=== PATIENT | female | born 1945 | race Two or more races ===

== ENCOUNTER 2024-09-23 11:43 | Inpatient (IN) | payer MEDICARE, OTHER ==
[~2024-09-23] VITALS: Ht 152.4 cm; Wt 68.0 kg
[2024-09-23 12:02] LABS: PLATELET COUNT (AUTO) 123 K/uL (150-450); RED BLOOD CELL COUNT(AUTO) 3.47 MIL/uL (4.0-5.2); RED CELL DISTRIBUTION WIDTH 24.4 % (11.5-15.0); WHITE BLOOD COUNT (AUTO) 4.2 K/uL (4.3-11.0)
[2024-09-23 12:36] LABS: ABG BASE EXCESS -0.8 mmol/L (-2.0-3.0); ABG OXYGEN SATURATION 98.0 % (94.0-98.0); ABG PCO2 32.4 mmHg (32.0-45.0); ABG PH 7.458 (7.350-7.450); ABG PO2 108.8 mmHg (83.0-108.0); ABG TOTAL HEMOGLOBIN 11.2 G/dL (12.0-16.0); FLOW, BLOOD GAS 4.00 L/min (0.00-30.00); FRACTIONATED INSPIRED OXYGEN 36.0 %; SITE, ABG RIGHT RADIAL
[2024-09-23 12:42] LABS: CALCIUM, SERUM 8.4 mg/dL (8.5-10.1); CREATININE 2.2 mg/dL (0.6-1.3); SODIUM SERUM 136 mmol/L (136-145); UREA NITROGEN, BLOOD 24 mg/dL (7-18)
[2024-09-23 12:54] LABS: NT-PRO BNP > 25000 pg/mL (0-125)
[2024-09-23 13:35] LABS: EOSINOPHILS % (MANUAL) 3 % (0-4); LYMPHOCYTES % (MANUAL) 14 % (16-48); MONOCYTES % (MANUAL) 11 % (0-11.0); NEUTROPHILS % (MANUAL) 72 (42-76); PLATELET ESTIMATE DECREASED
[2024-09-23] MEDS ORDERED: MAGNESIUM HYDROXIDE 30 ML UDC PO PRN (14:00)
[2024-09-23] MEDS ORDERED: MAG HYDROX/AL HYDROX/SIMETH 30 ML UDC PO PRN (14:00)
[2024-09-23] MEDS ORDERED: ONDANSETRON HCL/PF 4 MG/2 ML VIAL IVP PRN (14:00)
[2024-09-23 14:30] VITALS: BP 106/62; TEMP 97.7; O2SAT 94
[2024-09-23] MEDS ORDERED: MIRT-90 PO (14:53)
[2024-09-23] MEDS ORDERED: CYCL5TAB PO (14:53)
[2024-09-23] MEDS ORDERED: APIX5TAB PO (14:53)
[2024-09-23] MEDS ORDERED: FURO40TA5 PO (14:53)
[2024-09-23] MEDS ORDERED: ROSU10TA2 PO (14:53)
[2024-09-23] MEDS ORDERED: METO25TA6 PO (14:53)
[2024-09-23] MEDS ORDERED: PANT40TA49 PO ×2 (14:53)
[2024-09-23] MEDS ORDERED: MIDO5TAB4 PO (14:53)
[2024-09-23] MEDS ORDERED: GUAI1TBM19 PO (14:53)
[2024-09-23] MEDS ORDERED: CALC667T2 PO (14:53)
[2024-09-23] MEDS ORDERED: ACET-73 PO (14:53)
[2024-09-23 16:00] VITALS: BP 148/68; TEMP 98.4; O2SAT 95
[2024-09-23] MEDS: CALCIUM ACETATE 667 MG CAP/TAB PO SCH (18:08)
[2024-09-23] MEDS: APIXABAN 5 MG TABLET PO SCH (18:09)
[2024-09-23 20:00] VITALS: BP 117/74; TEMP 97.5
[2024-09-23] MEDS: CYCLOBENZAPRINE 10 MG TABLET PO SCH (21:52)
[2024-09-23] MEDS: MIRTAZAPINE 15 MG TABLET PO SCH (21:52)
[2024-09-23] MEDS: ACETAMINOPHEN 325 MG TABLET PO PRN (23:25)
[2024-09-24] VITALS: BP 103/67; TEMP 97.6; O2SAT 98
[2024-09-24 04:00] VITALS: BP 103/65; TEMP 97.5; O2SAT 100
[2024-09-24 06:57] LABS: PLATELET COUNT (AUTO) 104 K/uL (150-450); RED BLOOD CELL COUNT(AUTO) 3.49 MIL/uL (4.0-5.2); RED CELL DISTRIBUTION WIDTH 23.3 % (11.5-15.0); WHITE BLOOD COUNT (AUTO) 3.9 K/uL (4.3-11.0)
[2024-09-24 07:16] LABS: CALCIUM, SERUM 8.5 mg/dL (8.5-10.1); CREATININE 2.4 mg/dL (0.6-1.3); PHOSPHORUS 2.3 mg/dL (2.5-4.9); SODIUM SERUM 141.0 mmol/L (136-145); UREA NITROGEN, BLOOD 19.0 mg/dL (7-18)
[2024-09-24 08:00] VITALS: BP 118/62; TEMP 97.6; O2SAT 100
[2024-09-24] MEDS: FUROSEMIDE 40 MG TABLET PO SCH (08:37)
[2024-09-24] MEDS: METOPROLOL TARTRATE 25 MG TABLET PO SCH (08:38)
[2024-09-24] MEDS: PANTOPRAZOLE 40 MG TABLET.DR PO SCH (08:38)
[2024-09-24] MEDS: GUAIFENESIN/D-METHORPHAN HB 5 ML UDC PO SCH (08:38)
[2024-09-24] MEDS: ACETAMINOPHEN ES 500 MG TABLET PO SCH (08:38)
[2024-09-24] MEDS ORDERED: PANTOPRAZOLE 40 MG TABLET.DR PO SCH (09:00)
[2024-09-24] MEDS: MAGNESIUM OXIDE 400 MG TABLET PO ONE (10:09)
[2024-09-24] MEDS: POTASSIUM CHLORIDE 20 MEQ TAB.PRT.SR PO SCH (10:10)
[2024-09-24 12:00] VITALS: BP 95/58; TEMP 97.4; O2SAT 100
[2024-09-24] MEDS: MIDODRINE HCL (5MG) 5 MG TABLET PO ONE (12:05)
[2024-09-24 16:00] VITALS: BP 93/74; TEMP 97.3; O2SAT 99
[2024-09-24] MEDS ORDERED: K PHOS NEUTRAL 250 MG TABLET PO ONE (16:00)
[2024-09-24 20:00] VITALS: BP 108/73; TEMP 97.9; O2SAT 97
[2024-09-25] VITALS: BP 104/57; TEMP 97.2; O2SAT 100
[2024-09-25 04:00] VITALS: BP 104/74; TEMP 97.3; O2SAT 100
[2024-09-25 06:07] LABS: HEPATITIS B CORE AB, IgM Negative (Negative); HEPATITIS B CORE AB, TOTAL Negative (Negative); HEPATITIS B SURFACE AB (QUAL) Reactive (.)
[2024-09-25 08:00] VITALS: BP 113/68; TEMP 98.1; O2SAT 100
[2024-09-25] MEDS: ATORVASTATIN 40 MG TABLET PO SCH (09:31)
[2024-09-25] MEDS: Z GUARD REMEDY 4 OZ OINT TP PRN (09:34)
[2024-09-25 12:00] VITALS: BP 101/71; TEMP 98; O2SAT 99
[2024-09-25] MEDS: LOPERAMIDE HCL (2 MG CAP) 2 MG CAPSULE PO PRN (13:25)
[2024-09-25 16:00] VITALS: BP 106/69; TEMP 98.2; O2SAT 99
[2024-09-25] MEDS: MIDODRINE HCL (5MG) 5 MG TABLET PO PRN (16:23)
[2024-09-25 19:56] LABS: ASPARTATE AMINOTRANSFERASE 34.0 U/L (15-37); CALCIUM, SERUM 8.5 mg/dL (8.5-10.1); CREATININE 1.3 mg/dL (0.6-1.3); PHOSPHORUS 1.3 mg/dL (2.5-4.9); SODIUM SERUM 134.0 mmol/L (136-145); TOTAL PROTEIN, SERUM 8.1 g/dL (6.4-8.2); UREA NITROGEN, BLOOD 11.0 mg/dL (7-18)
[2024-09-25 20:00] VITALS: BP 116/89; TEMP 97; O2SAT 93
[2024-09-25 20:20] LABS: PLATELET COUNT (AUTO) 93 K/uL (150-450); RED BLOOD CELL COUNT(AUTO) 3.76 MIL/uL (4.0-5.2); RED CELL DISTRIBUTION WIDTH 22.8 % (11.5-15.0); WHITE BLOOD COUNT (AUTO) 4.6 K/uL (4.3-11.0)
[2024-09-26] VITALS: BP 99/73; TEMP 97.5; O2SAT 93
[2024-09-26 04:00] VITALS: BP 97/59; TEMP 98.2; O2SAT 93
[2024-09-26 07:34] LABS: PLATELET COUNT (AUTO) 89 K/uL (150-450); RED BLOOD CELL COUNT(AUTO) 3.89 MIL/uL (4.0-5.2); RED CELL DISTRIBUTION WIDTH 23.4 % (11.5-15.0); WHITE BLOOD COUNT (AUTO) 4.5 K/uL (4.3-11.0)
[2024-09-26 07:55] LABS: ASPARTATE AMINOTRANSFERASE 34.0 U/L (15-37); CALCIUM, SERUM 8.7 mg/dL (8.5-10.1); CREATININE 2.0 mg/dL (0.6-1.3); PHOSPHORUS 1.7 mg/dL (2.5-4.9); SODIUM SERUM 134.0 mmol/L (136-145); TOTAL PROTEIN, SERUM 7.8 g/dL (6.4-8.2); UREA NITROGEN, BLOOD 19.0 mg/dL (7-18)
[2024-09-26 08:00] VITALS: BP 109/69; TEMP 97.5; O2SAT 96
[2024-09-26 08:44] LABS: EOSINOPHILS % (MANUAL) 2 % (0-4); LYMPHOCYTES % (MANUAL) 13 % (16-48); MONOCYTES % (MANUAL) 8 % (0-11.0); NEUTROPHILS % (MANUAL) 77 (42-76); PLATELET ESTIMATE DECREASED
[2024-09-26 16:00] VITALS: BP 92/64; TEMP 97.4; O2SAT 96
[2024-09-26] MEDS: K PHOS NEUTRAL 250 MG TABLET PO ONE (16:57)
[2024-09-26 20:00] VITALS: BP 95/59; TEMP 98; O2SAT 100
[2024-09-27 04:00] VITALS: BP 119/66; TEMP 97.5; O2SAT 100
[2024-09-27 08:00] VITALS: BP 106/68; TEMP 98.4; O2SAT 100
[2024-09-27 10:40] LABS: PLATELET COUNT (AUTO) 92 K/uL (150-450); RED BLOOD CELL COUNT(AUTO) 3.61 MIL/uL (4.0-5.2); RED CELL DISTRIBUTION WIDTH 23.3 % (11.5-15.0); WHITE BLOOD COUNT (AUTO) 4.0 K/uL (4.3-11.0)
[2024-09-27 11:30] LABS: EOSINOPHILS % (MANUAL) 2 % (0-4); LYMPHOCYTES % (MANUAL) 18 % (16-48); MONOCYTES % (MANUAL) 2 % (0-11.0); NEUTROPHILS % (MANUAL) 78 (42-76); PLATELET ESTIMATE DECREASED
[2024-09-27 16:00] VITALS: BP 109/69; TEMP 98; O2SAT 100
[2024-09-27 20:00] VITALS: BP 116/65; TEMP 97.2; O2SAT 100
[2024-09-28 04:00] VITALS: BP 108/63; TEMP 97; O2SAT 95
[2024-09-28 08:00] VITALS: BP 108/63; TEMP 97.3; O2SAT 95
[2024-09-28 14:03] VITALS: BP 88/60
== END 2024-09-28 17:50 | DRG 189 ==
LOC: ER 11:49 → TELE1 13:19 → MEDSG1 09-26 10:10
PROVIDERS: ADMIT Internal Medicine; ATTEND Internal Medicine
PROC: 5A1D70Z Performance of Urinary Filtration, Intermittent, Less than 6 Hours Per Day (ICD-10-PCS; principal; 2024-09-23)
DX: J96.21 Acute and chronic respiratory failure with hypoxia (principal); I50.33 Acute on chronic diastolic (congestive) heart failure; N18.6 End stage renal disease; I13.2 Hypertensive heart and chronic kidney disease with heart failure and with stage 5 chronic kidney disease, or end stage renal disease; T86.12 Kidney transplant failure; D68.59 Other primary thrombophilia; Y83.0 Surgical operation with transplant of whole organ as the cause of abnormal reaction of the patient, or of later complication, without mention of misadventure at the time of the procedure; I25.10 Atherosclerotic heart disease of native coronary artery without angina pectoris; Z99.2 Dependence on renal dialysis; Z66 Do not resuscitate; E78.5 Hyperlipidemia, unspecified; I48.91 Unspecified atrial fibrillation; I27.20 Pulmonary hypertension, unspecified; I05.0 Rheumatic mitral stenosis; D63.8 Anemia in other chronic diseases classified elsewhere; E83.42 Hypomagnesemia; E87.6 Hypokalemia; M89.8X9 Other specified disorders of bone, unspecified site; Z79.01 Long term (current) use of anticoagulants; Z79.899 Other long term (current) drug therapy
CPT/HCPCS: 36415; 36600; 71045-TC; 80048-TC; 80053-TC; 82803-TC; 83735-TC; 83880; 84100-TC; 84443-TC; 84484-TC; 85025-TC; 85027-TC; 86704; 86705; 86706; 86803; 87340; 90935-TC; 93307-TC; A6403; G0378; J7030